=== PATIENT | male | born 1935 | race Caucasian/White ===

== ENCOUNTER 2016-12-05 11:39 | Day surgery (SDC) | payer MEDICARE ==
--- NOTE | 2016-12-05 08:00 | HP ---
DATE OF SURGERY: 12/05/2016 HISTORY OF PRESENT ILLNESS: The patient is an 81 year-old with bulge left inguinal area for a long time increasing in size over the past six weeks. He had prior repair right inguinal area when he was 27 years old. He has history of prostate cancer in the past. 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 He also has history of hypothyroidism in the past. PAST MEDICAL HISTORY: Right inguinal area repair when he was 27 years old, prostate surgery and seed placement. MEDICATIONS: Levothyroxine. ALLERGIES: NKDA. FAMILY HISTORY: Negative. SOCIAL HISTORY: No smoking or alcohol abuse. REVIEW OF SYSTEMS: Twelve systems reviewed per admission assessment. No chest pain or palpitations other systems negative or noncontributory as above and per preadmission questionnaire. Pertinent for as noted above. PHYSICAL EXAMINATION: GENERAL: No acute distress. HEENT: Sclerae nonicteric. NECK: No JVD. CHEST: Equal excursion, nonlabored breathing. CVS: Regular rate and rhythm. ABDOMEN: Soft. No right inguinal hernia. In left inguinal area bulge consistent with left inguinal hernia. EXTREMITIES: No edema. No cyanosis. NEURO: Alert, oriented, moving extremities symmetrically. No gross motor deficits noted. IMPRESSION: Left inguinal hernia. I feel the patient would benefit from repair. Shown the risk sheet and explained the procedure in detail but not limited to bleeding or infection, risk of hematoma or seroma formation, swelling or firmness of the incision, risk of aches, pains, burning, numbness lower abdomen, groin, thigh or scrotal area possible biological inspector or chronic in nature up to 10 to 12% risk of sensory nerve irritation, scar formation or injury, possibly interfering with sexual function from the aches and pains standpoint. Overall risk of hernia recurrence, risk of ingrown hair or suture reaction in the incision, risk if the mesh became infected likely would need to be removed, general risk of anesthesia, deep venous thrombosis, pulmonary embolism, pneumonia but not limited to. He understands and agrees to the planned procedure and will proceed with left inguinal hernia repair with mesh as an outpatient.
[~2016-12-05 11:39] MED LIST: CEFAZOLIN 2 GM-D5W BAG** 50 ML IV ONE; DILAUDID 2 MG INJECTION IV ONE; DIPRIVAN 200 MG/20 ML IV ONE; Decadron 4 MG INJ IV ONE; Lactated Ringers 1,000 ML IV ONE; Lactated Ringers 1,000 ML IV SCH; SUBLIMAZE 100 MCG/2 ML IV ONE; Sensorcaine 0.25% 10 ML ONE; TORAdol 30 mg Injection IV ONE; Zofran 4 MG/2 ML VIAL IV ONE
[2016-12-05 18:00] VITALS: O2SAT 92
[2016-12-05 18:30] VITALS: BP 137/88; PULSE 88
--- NOTE | 2016-12-06 08:19 | OP ---
SURGERY DATE/TIME: 12/05/2016 1415 PREOPERATIVE DIAGNOSIS: Left inguinal hernia. POSTOPERATIVE DIAGNOSIS: Left inguinal hernia including small lateral cord lipoma. PROCEDURE: Left inguinal hernia repair with mesh. SURGEON: Dr. Jamal Ward. CHECKER LOADER: Jesenia Malhotra, Medical Student III. ANESTHESIA: General. ESTIMATED BLOOD LOSS: Minimal. INDICATIONS: As noted above. Risks and benefits explained in detail and not limited to and consent obtained. DESCRIPTION OF PROCEDURE AND FINDINGS: The patient is taken to the operating room. The site had been confirmed and marked in the holding area. General anesthesia induced. Abdomen is prepped and draped in usual sterile fashion. After official time out and no disagreement with planned procedure, a transverse incision made left inguinal area. Dissection carried down through the Bella fascia through the external oblique split in the directions of its fibers towards the external ring. The cord is mobilized off the pubic tubercle with Wallace drain. He appeared to have a direct and indirect hernia component. Indirect hernia component the omentum appeared to have some small bowel that was in the hernia was reduced back into the abdomen. The hernia sac was carefully isolated away from the cord vessels, vas and structures. It was opened. It still had small residual amount of abdominal fat and was reduced back into the abdomen further. A slight component of the colon was reduced back down into the abdomen. Hernia sac was empty of contents. It was high ligated with 0 Prolene. Hernia sac dissected off. There was a lateral cord lipoma that was carefully away from cord structures this definitely to avoid confusion with question of hernia down the road, this was ligated with 2-0 Vicryl suture ligature and passed off. Good hemostasis noted. Direct component was then imbricated down with interrupted 0 PDS to a more normal sized internal ring. Once this was accomplished it was felt he would benefit from mesh repair. A 2x4 piece of mesh cut to appropriate to appropriate dimensions. Keyhole cut. Secured to fascia overlying pubic tubercle. 0 Prolene run along Jt's ligament, shelving portion of inguinal ligament laterally past the internal ring. 0 Prolene used to transfix to the rectus fascia medially and 0 Vicryl to aponeurosis internal oblique superiorly avoiding a visible iliohypogastric and ilioinguinal nerves. The tails of the mesh were tacked together laterally with 0 Prolene. The new internal ring was felt to be not too tight. The tails were laying out laterally nice and flat under the external oblique. The mesh was nice and flat in a tension free manner. The wound is irrigated out. Good hemostasis noted. External oblique closed with 0 Vicryl. Bella closed with 3-0 Vicryl. Subcu closed with 3-0 Vicryl. Skin closed with 4-0 Vicryl. Steri-Strips and sterile dressing applied. 0.25% Marcaine local injected along the skin incision fascial defects. The patient tolerated the procedure well. There were no immediate complications. Findings were discussed with the family out in the waiting area. The TURPENTINE FARMER had done tap-type block prior to procedure as well.
== END 2016-12-05 18:30 | disposition home or self-care (01) ==
LOC: SDC 11:39
PROVIDERS: ATTEND Surgery
PROC: 0YU60JZ Supplement Left Inguinal Region with Synthetic Substitute, Open Approach (ICD-10-PCS; principal; 2016-12-05)
DX: K40.90 Unilateral inguinal hernia, without obstruction or gangrene, not specified as recurrent (principal); D17.6 Benign lipomatous neoplasm of spermatic cord; E03.9 Hypothyroidism, unspecified; Z85.46 Personal history of malignant neoplasm of prostate; Z86.718 Personal history of other venous thrombosis and embolism
CPT/HCPCS: 00830; 36415; 64425; 76942; 99100; C1781; J0690; J1100; J1170; J1885; J2405; J2704; J3010